=== PATIENT | male | born 1935 | race Caucasian/White ===

== ENCOUNTER 2017-04-27 02:34 | Emergency (ER) | payer OTHER ==
[~2017-04-27] VITALS: Ht 175.3 cm; Wt 74.8 kg
[~2017-04-27 02:34] MED LIST: ACYCLOVIR 400400 MG PO; ADULT LOW DOSE81 MG PO; B-12500 MCG PO; CARDIOTABS PO; CHOLESTYRAMINE R5 GM; CIPROFLOXACIN500 M1 PO; COREG PO; CRESTOR40 MG PO; DIFLORASONE DIA30 GM; DOXYCYCLINE 10100 MG PO; ERYTHROMYCIN E3.5 G1 OPHTHALMIC; FLAGYL500 MG PO; GABAPENTIN 100100 MG PO; GEMFIBROZIL 60600 MG PO; GLUCOPHAGE500 MG PO; HYCET 7.5 MG-3473 ML PO; IRON INFUSION; KLOR-CON 1010 MEQ PO; LEVAQUIN 500 M500 MG PO; NEXIUM40 MG PO; NORCO 5-325 TA1 EACH; NORCO 5-325 TA1 EACH PO; OMEPRAZOLE20 M2 PO; PANTOPRAZOLE SO40 M1; PREDNISONE 20 M20 MG PO; QUINU10 PD; REGLAN 10 MG TA10 MG PO; SLOW FE 160MG160 MG PO; SLOW IRON PO; TOBREX5 ML OPHTHALMIC; TRICOR145 MG PO; VENTOLIN HFA 1818 GM INH; VICODIN 5-5001 EACH PO; VITAMIN E400 UNIT PO; VYTORIN 10-801 EACH PO; ZANAFLEX2 M1 PO; ZOFRAN ODT4 MG PO; ZOFRAN4 MG PO; [UNRECOGNIZED DRUG - OTHER] PO
[2017-04-27 03:04] LABS: ABSOLUTE NEUTROPHILS 8.4 thou/uL (1.4-8.2); BASOPHILS 1.2 % (0.0-2.0); EOSINOPHILS 1.3 % (0.0-3.0); HEMATOCRIT 42.3 % (42.0-52.0); HEMOGLOBIN 14.5 gm/dL (14.0-18.0); LYMPHOCYTES 7.1 % (24.0-44.0); MCH 32.4 pg (26.0-34.0); MCHC 34.3 g/dL (28.0-37.0); MCV 94.3 fL (80.0-100.0); MONOCYTES 6.7 % (1.0-8.0); PLATELET COUNT 166 thou/uL (150-400); POLYS 83.7 % (36.0-66.0); RBC 4.49 mil/uL (4.50-6.00); RDW 13.5 % (10.5-14.5); WBC 10.1 thou/uL (4.0-11.0)
[2017-04-27 03:13] LABS: CALCIUM 9.2 mg/dL (8.5-10.1); CREATININE 1.1 mg/dL (0.7-1.3); POTASSIUM 3.9 mmol/L (3.5-5.1)
[2017-04-27 03:17] LABS: TOTAL BILIRUBIN 0.7 mg/dL (<0.1-1.0); TOTAL PROTEIN 7.4 g/dL (6.4-8.2)
[2017-04-27 03:18] LABS: MANUAL DIFF NO
[2017-04-27 04:03] LABS: URINE BILIRUBIN NEGATIVE (Negative); URINE BLOOD NEGATIVE (Negative); URINE COLOR YELLOW; URINE GLUCOSE-RANDOM* TRACE (Negative); URINE KETONES TRACE (Negative); URINE LEUKOCYTES-REFLEX NEGATIVE (Negative); URINE PROTEIN (DIPSTICK) TRACE (Negative); URINE SPECIFIC GRAVITY >= 1.030 (1.003-1.035); URINE UROBILINOGEN 0.2 E.U./dl (0.2-1.0)
[2017-04-27] MEDS ORDERED: ZOFRAN ODT4 MG PO (05:36)
[2017-04-27 05:50] VITALS: BP 130/50
== END 2017-04-27 05:41 ==
LOC: ER 02:34
PROVIDERS: Emergency Medicine
DX: K52.9 Noninfective gastroenteritis and colitis, unspecified (principal); I10 Essential (primary) hypertension; E11.9 Type 2 diabetes mellitus without complications; K21.9 Gastro-esophageal reflux disease without esophagitis; E78.5 Hyperlipidemia, unspecified; I25.10 Atherosclerotic heart disease of native coronary artery without angina pectoris; Z86.2 Personal history of diseases of the blood and blood-forming organs and certain disorders involving the immune mechanism; Z88.0 Allergy status to penicillin

== ENCOUNTER 2018-05-05 11:24 | Emergency (ER) | payer OTHER ==
[~2018-05-05] VITALS: Ht 177.8 cm; Wt 69.4 kg
[2018-05-05] MEDS ORDERED: FENOFIBRATE145 M1 PO (11:38)
[2018-05-05 12:28] LABS: APTT 25.8 Seconds (24.5-32.8); PROTIME 10.6 Seconds (9.3-11.4)
[2018-05-05] MEDS ORDERED: TRAMADOL 50 MG50 MG PO (13:09)
[2018-05-05 14:33] VITALS: BP 164/65
== END 2018-05-05 14:54 | disposition home or self-care (01) ==
LOC: ER 11:24
PROVIDERS: Emergency Medicine
DX: S89.91XA Unspecified injury of right lower leg, initial encounter (principal); M25.461 Effusion, right knee; I10 Essential (primary) hypertension; E11.9 Type 2 diabetes mellitus without complications; K21.9 Gastro-esophageal reflux disease without esophagitis; E78.5 Hyperlipidemia, unspecified; I25.10 Atherosclerotic heart disease of native coronary artery without angina pectoris; Z88.0 Allergy status to penicillin; W22.8XXA Striking against or struck by other objects, initial encounter; Y92.89 Other specified places as the place of occurrence of the external cause; Y93.89 Activity, other specified; Y99.8 Other external cause status

== ENCOUNTER 2018-10-19 12:59 | Emergency (ER) | payer OTHER ==
[~2018-10-19] VITALS: Ht 177.8 cm; Wt 68.0 kg
[~2018-10-19 12:59] MED LIST changes: +FENOFIBRATE145 M1 PO; +TRAMADOL 50 MG50 MG PO
[2018-10-19] MEDS ORDERED: CHOLESTYRAMINE P4 GM PO (13:52)
[2018-10-19] MEDS ORDERED: VITAMIN B-12500 MCG PO (13:52)
[2018-10-19 14:21] LABS: EOSINOPHILS 1.1 % (0.0-3.0); HEMATOCRIT 42.1 % (42.0-52.0); HEMOGLOBIN 14.4 gm/dL (14.0-18.0); LYMPHOCYTES 20.9 % (24.0-44.0); MCH 31.8 pg (26.0-34.0); MCHC 34.2 g/dL (28.0-37.0); MCV 93.2 fL (80.0-100.0); MONOCYTES 6.5 % (1.0-8.0); PLATELET COUNT 188 thou/uL (150-400); POLYS 70.5 % (36.0-66.0); RBC 4.52 mil/uL (4.50-6.00); RDW 13.1 % (10.5-14.5); WBC 7.1 thou/uL (4.0-11.0)
[2018-10-19 14:28] LABS: CALCIUM 9.3 mg/dL (8.5-10.1); POTASSIUM 3.3 mmol/L (3.5-5.1)
[2018-10-19 14:34] LABS: ALBUMIN 3.8 g/dL (3.4-5.0); TOTAL BILIRUBIN 0.7 mg/dL (<0.1-1.0); TOTAL PROTEIN 7.3 g/dL (6.4-8.2)
[2018-10-19 16:21] LABS: URINE BILIRUBIN NEGATIVE (Negative); URINE BLOOD NEGATIVE (Negative); URINE CLARITY CLEAR; URINE COLOR YELLOW; URINE GLUCOSE-RANDOM* NEGATIVE (Negative); URINE KETONES NEGATIVE (Negative); URINE LEUKOCYTES-REFLEX NEGATIVE (Negative); URINE NITRITE-REFLEX NEGATIVE (Negative); URINE PROTEIN (DIPSTICK) NEGATIVE (Negative); URINE UROBILINOGEN 0.2 E.U./dl (0.2-1.0)
[2018-10-19] MEDS ORDERED: BENTYL 20 MG TA20 M1 PO (16:25)
[2018-10-19 16:36] VITALS: BP 124/64
== END 2018-10-19 16:37 | disposition home or self-care (01) ==
LOC: ER 12:59
PROVIDERS: Physician Assistant
DX: R10.31 Right lower quadrant pain (principal); I10 Essential (primary) hypertension; E11.9 Type 2 diabetes mellitus without complications; K21.9 Gastro-esophageal reflux disease without esophagitis; E78.5 Hyperlipidemia, unspecified; I25.810 Atherosclerosis of coronary artery bypass graft(s) without angina pectoris; Z88.0 Allergy status to penicillin

== ENCOUNTER 2019-09-16 15:10 | Emergency (ER) | payer OTHER ==
[~2019-09-16] VITALS: Ht 177.8 cm; Wt 65.3 kg
[~2019-09-16 15:10] MED LIST changes: +BENTYL 20 MG TA20 M1 PO; +CHOLESTYRAMINE P4 GM PO; +VITAMIN B-12500 MCG PO
[2019-09-16 15:11] VITALS: BP 97/47
[2019-09-16] MEDS ORDERED: BENADRYL ITCH28.3 G1 TOP (15:41)
[2019-09-16] MEDS ORDERED: PREDNISONE 20 M20 M1 PO (15:41)
[2019-09-16] MEDS ORDERED: FAMOTIDINE 20 M20 MG PO (15:41)
== END 2019-09-16 16:01 | disposition home or self-care (01) ==
LOC: ER 15:10
DX: L50.9 Urticaria, unspecified (principal); T38.3X5A Adverse effect of insulin and oral hypoglycemic [antidiabetic] drugs, initial encounter; I10 Essential (primary) hypertension; I25.10 Atherosclerotic heart disease of native coronary artery without angina pectoris; E11.9 Type 2 diabetes mellitus without complications; E78.5 Hyperlipidemia, unspecified; K21.9 Gastro-esophageal reflux disease without esophagitis; Z86.2 Personal history of diseases of the blood and blood-forming organs and certain disorders involving the immune mechanism; Z88.0 Allergy status to penicillin; Y92.89 Other specified places as the place of occurrence of the external cause

== ENCOUNTER 2019-10-28 12:57 | Emergency (ER) | payer OTHER ==
[~2019-10-28] VITALS: Ht 177.8 cm; Wt 68.0 kg
[~2019-10-28 12:57] MED LIST changes: +BENADRYL ITCH28.3 G1 TOP; +FAMOTIDINE 20 M20 MG PO; +PREDNISONE 20 M20 M1 PO
[2019-10-28] MEDS ORDERED: LISINOPRIL2.5 MG PO (13:02)
[2019-10-28] MEDS ORDERED: PROTONIX40 M2 PO (13:02)
[2019-10-28] MEDS ORDERED: CARVEDILOL25 MG PO (13:02)
[2019-10-28] MEDS ORDERED: ROSUVASTATIN CA20 MG PO (13:02)
[2019-10-28] MEDS ORDERED: JARDIANCE25 MG PO (13:03)
[2019-10-28] MEDS ORDERED: TRADJENTA5 MG (13:03)
[2019-10-28] MEDS ORDERED: NORCO 5-325 TA1 EAC1 PO (13:30)
[2019-10-28 13:44] VITALS: BP 135/57
== END 2019-10-28 13:35 | disposition home or self-care (01) ==
LOC: ER 12:57
DX: B02.29 Other postherpetic nervous system involvement (principal); E78.5 Hyperlipidemia, unspecified; K21.9 Gastro-esophageal reflux disease without esophagitis; I11.0 Hypertensive heart disease with heart failure; I50.9 Heart failure, unspecified; I25.10 Atherosclerotic heart disease of native coronary artery without angina pectoris; Z88.0 Allergy status to penicillin

== ENCOUNTER 2020-03-18 00:14 | Emergency (ER) | payer OTHER ==
[~2020-03-18] VITALS: Ht 170.2 cm; Wt 72.1 kg
[~2020-03-18 00:14] MED LIST changes: +CARVEDILOL25 MG PO; +JARDIANCE25 MG PO; +LISINOPRIL2.5 MG PO; +NORCO 5-325 TA1 EAC1 PO; +PROTONIX40 M2 PO; +ROSUVASTATIN CA20 MG PO; +TRADJENTA5 MG
[2020-03-18] MEDS ORDERED: NORFLEX100 MG PO (01:48)
[2020-03-18] MEDS ORDERED: NORCO 5-325 TA1 EAC1 PO (01:48)
[2020-03-18] MEDS ORDERED: SENNA-DOCUSATE1 EAC1 PO (01:48)
[2020-03-18] MEDS ORDERED: ACTOS 45 MG45 M2 PO (01:54)
[2020-03-18] MEDS ORDERED: NEURONTIN 300M300 M2 PO (01:57)
[2020-03-18] MEDS ORDERED: CARDIOTAB PO (01:58)
[2020-03-18] MEDS ORDERED: [UNRECOGNIZED DRUG - OTHER] PO (01:58)
[2020-03-18] MEDS ORDERED: VITAMIN B12 PO (01:59)
[2020-03-18 02:28] VITALS: BP 113/69
--- NOTE | 2020-03-18 14:29 | EKG ---
[facility] [place] [address] ELECTROCARDIOGRAM REPORT Name: CUONG ISIDRO Room #: DEP [facility]#: [id number] Admission: 03/18/20 Attend Phys: Discharge: 03/18/20 Date of : 31 Report #: [id number] THIS REPORT FOR: cc: Oh Landon David J. 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
== END 2020-03-18 02:20 | disposition home or self-care (01) ==
LOC: ER 00:14
DX: M62.838 Other muscle spasm (principal); M25.512 Pain in left shoulder; I10 Essential (primary) hypertension; E11.9 Type 2 diabetes mellitus without complications; K21.9 Gastro-esophageal reflux disease without esophagitis; E78.5 Hyperlipidemia, unspecified; I25.10 Atherosclerotic heart disease of native coronary artery without angina pectoris; Z87.19 Personal history of other diseases of the digestive system; Z79.899 Other long term (current) drug therapy; Z88.0 Allergy status to penicillin

== ENCOUNTER → 2020-06-17 | Outpatient (CLI) | payer OTHER ==
[~2020-06-17] MED LIST changes: +ACTOS 45 MG45 M2 PO; +CARDIOTAB PO; +NEURONTIN 300M300 M2 PO; +NORFLEX100 MG PO; +SENNA-DOCUSATE1 EAC1 PO; +VITAMIN B12 PO; +[UNRECOGNIZED DRUG - OTHER] PO
== END ==
LOC: SJCVC 11:06
PROVIDERS: ATTEND Internal Medicine Cardiovascular Disease
DX: I25.10 Atherosclerotic heart disease of native coronary artery without angina pectoris (principal); R94.31 Abnormal electrocardiogram [ECG] [EKG]; I10 Essential (primary) hypertension; E78.00 Pure hypercholesterolemia, unspecified; E11.9 Type 2 diabetes mellitus without complications; Z95.1 Presence of aortocoronary bypass graft; Z79.899 Other long term (current) drug therapy

== ENCOUNTER → 2020-07-02 | Outpatient (CLI) | payer OTHER | LOC: SJCVCIMAG 07:47 | PROVIDERS: ATTEND Internal Medicine Cardiovascular Disease | DX: I25.10 Atherosclerotic heart disease of native coronary artery without angina pectoris (principal); I45.10 Unspecified right bundle-branch block; I49.3 Ventricular premature depolarization; E78.5 Hyperlipidemia, unspecified; I10 Essential (primary) hypertension; E11.9 Type 2 diabetes mellitus without complications; Z95.1 Presence of aortocoronary bypass graft; Z79.899 Other long term (current) drug therapy ==

== ENCOUNTER 2020-08-08 16:00 | Emergency (ER) | payer OTHER ==
[~2020-08-08] VITALS: Ht 172.7 cm; Wt 68.0 kg
[2020-08-08] MEDS ORDERED: ASA81BEC PO (19:04)
[2020-08-08] MEDS ORDERED: NITROSTAT0.4 M1 SUBLING (19:04)
[2020-08-08] MEDS ORDERED: NORCO 5-325 TA1 EAC2 PO (19:08)
[2020-08-08] MEDS ORDERED: VOLTAREN GEL 1100 G1 TOP (19:08)
[2020-08-08] MEDS ORDERED: TIZANIDINE HCL2 M1 PO (19:08)
[2020-08-08 19:11] VITALS: BP 149/51
== END 2020-08-08 19:27 | disposition home or self-care (01) ==
LOC: ER 16:00
DX: S16.1XXA Strain of muscle, fascia and tendon at neck level, initial encounter (principal); I10 Essential (primary) hypertension; E11.9 Type 2 diabetes mellitus without complications; E78.5 Hyperlipidemia, unspecified; K21.9 Gastro-esophageal reflux disease without esophagitis; I25.10 Atherosclerotic heart disease of native coronary artery without angina pectoris; Z86.2 Personal history of diseases of the blood and blood-forming organs and certain disorders involving the immune mechanism; Z79.899 Other long term (current) drug therapy; Z88.0 Allergy status to penicillin; X50.1XXA Overexertion from prolonged static or awkward postures, initial encounter; Y93.89 Activity, other specified; Y92.89 Other specified places as the place of occurrence of the external cause; Y99.8 Other external cause status

== ENCOUNTER → 2020-10-09 | Outpatient (CLI) | payer OTHER ==
[~2020-10-09] MED LIST changes: +ASA81BEC PO; +NITROSTAT0.4 M1 SUBLING; +NORCO 5-325 TA1 EAC2 PO; +TIZANIDINE HCL2 M1 PO; +VOLTAREN GEL 1100 G1 TOP
== END ==
LOC: SJCVC 11:01
PROVIDERS: ATTEND Internal Medicine Cardiovascular Disease
DX: R94.31 Abnormal electrocardiogram [ECG] [EKG] (principal); E11.9 Type 2 diabetes mellitus without complications; I65.23 Occlusion and stenosis of bilateral carotid arteries; E78.00 Pure hypercholesterolemia, unspecified; I25.810 Atherosclerosis of coronary artery bypass graft(s) without angina pectoris; I10 Essential (primary) hypertension; Z95.1 Presence of aortocoronary bypass graft; Z79.82 Long term (current) use of aspirin; Z79.899 Other long term (current) drug therapy; Z88.8 Allergy status to other drugs, medicaments and biological substances; Z88.0 Allergy status to penicillin

== ENCOUNTER 2020-11-08 14:21 | Emergency (ER) | payer OTHER ==
[~2020-11-08] VITALS: Ht 175.3 cm; Wt 64.9 kg
[2020-11-08] MEDS ORDERED: CARVEDILOL (15:33)
[2020-11-08] MEDS ORDERED: ZESTRIL5 MG PO (15:34)
[2020-11-08] MEDS ORDERED: PLAVIX 75 MG TA75 MG PO (15:34)
[2020-11-08] MEDS ORDERED: ROSUVASTATIN CA20 MG PO (15:36)
[2020-11-08] MEDS ORDERED: PROTONIX40 M2 PO (15:36)
[2020-11-08] MEDS ORDERED: TRADJENTA5 MG (15:37)
[2020-11-08 15:46] LABS: ABSOLUTE NEUTROPHILS 2.1 thou/uL (1.4-8.2); BASOPHILS 0.8 % (0.0-2.0); EOSINOPHILS 3.2 % (0.0-3.0); HEMATOCRIT 37.2 % (42.0-52.0); LYMPHOCYTES 26.2 % (24.0-44.0); MCH 32.2 pg (26.0-34.0); MCHC 32.3 g/dL (28.0-37.0); MCV 99.8 fL (80.0-100.0); MONOCYTES 2.6 % (1.0-8.0); PLATELET COUNT 186 thou/uL (150-400); POLYS 67.2 % (36.0-66.0); RBC 3.72 mil/uL (4.50-6.00); RDW 15.2 % (10.5-14.5); WBC 3.2 thou/uL (4.0-11.0)
[2020-11-08 15:48] LABS: ANION GAP 13 mmol/L (7-16); BUN 30 mg/dL (7-18); CALCIUM 8.9 mg/dL (8.5-10.1); CHLORIDE 104 mmol/L (98-107); CO2 19 mmol/L (21-32); CREATININE 1.4 mg/dL (0.7-1.3); GLUCOSE 315 mg/dL (74-106); POTASSIUM 4.4 mmol/L (3.5-5.1); SODIUM 136 mmol/L (136-145)
[2020-11-08 15:58] LABS: ALBUMIN 3.3 g/dL (3.4-5.0); DIRECT BILIRUBIN < 0.1 mg/dL (<0.1-0.2); SGOT 29 U/L (15-37); SGPT 26 U/L (30-65); TOTAL BILIRUBIN 0.5 mg/dL (0.2-1.0); TOTAL PROTEIN 6.5 g/dL (6.4-8.2); TROPONIN-I <0.06 ng/mL (<0.06)
--- NOTE | 2020-11-08 16:21 | EKG ---
[place] [address] [facility] [place] [address] ELECTROCARDIOGRAM REPORT Name: ESTELLEIMMANUELCUONG E [id number] Admission: 11/08/20 Attend Phys: Discharge: Date of : 31 Report #: [id number] 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: [place] : 1935 Requested By: Marlyn Gaona Order Number: [id number] MD: Anant Mejia Measurements Intervals [place] Rate: 72 P: 23 MO: 187 QRS: -21 QRSD: 107 T: 65 QT: 403 QTc: 442 Interpretive Statements Sinus rhythm Borderline left axis deviation Q's lead II, AVF RSR' in V1 or V2, probably normal variant Compared to ECG 03/18/2020 01:10:27 RSR' in V1 or V2 now present Electronically Signed On 11-08-2020 16:21:03 [employer]BI[employer] UI[employer] DESIGN[employer] by Anant Mejia [email or web address] <ELECTRONICALLY SIGNED> By: Anant Mejia MD, [facility] [id number] 50 50 Anant Mejia MD, FAC /EPI
[2020-11-08 17:35] LABS: URINE BILIRUBIN NEGATIVE (Negative); URINE BLOOD TRACE (Negative); URINE CLARITY CLEAR; URINE COLOR YELLOW; URINE GLUCOSE-RANDOM* 3+ (Negative); URINE KETONES NEGATIVE (Negative); URINE LEUKOCYTES-REFLEX NEGATIVE (Negative); URINE NITRITE-REFLEX NEGATIVE (Negative); URINE PROTEIN (DIPSTICK) NEGATIVE (Negative); URINE UROBILINOGEN 0.2 E.U./dl (0.2-1.0)
[2020-11-08 18:32] VITALS: BP 119/46
== END 2020-11-08 18:32 | disposition home or self-care (01) ==
LOC: ER 14:21
PROVIDERS: Emergency Medicine
DX: R53.1 Weakness (principal); R19.7 Diarrhea, unspecified; I10 Essential (primary) hypertension; E11.9 Type 2 diabetes mellitus without complications; K21.9 Gastro-esophageal reflux disease without esophagitis; E78.5 Hyperlipidemia, unspecified; I25.10 Atherosclerotic heart disease of native coronary artery without angina pectoris; Z88.0 Allergy status to penicillin; Z79.899 Other long term (current) drug therapy; Z79.82 Long term (current) use of aspirin

== ENCOUNTER → 2021-01-23 | Outpatient (CLI) | payer OTHER ==
[~2021-01-23] MED LIST changes: +CARVEDILOL; +PLAVIX 75 MG TA75 MG PO; +ZESTRIL5 MG PO
== END ==
LOC: SJCVC 15:16 → SJCVCIMAG 15:16
PROVIDERS: ATTEND Internal Medicine Cardiovascular Disease
DX: I65.23 Occlusion and stenosis of bilateral carotid arteries (principal); R94.31 Abnormal electrocardiogram [ECG] [EKG]; I10 Essential (primary) hypertension; E78.5 Hyperlipidemia, unspecified; I25.810 Atherosclerosis of coronary artery bypass graft(s) without angina pectoris; E78.00 Pure hypercholesterolemia, unspecified; E11.9 Type 2 diabetes mellitus without complications; Z95.1 Presence of aortocoronary bypass graft; Z88.0 Allergy status to penicillin; Z88.8 Allergy status to other drugs, medicaments and biological substances; Z79.82 Long term (current) use of aspirin; Z79.899 Other long term (current) drug therapy

== ENCOUNTER → 2021-07-23 | Outpatient (CLI) | payer OTHER | LOC: SJCVC 11:06 | PROVIDERS: ATTEND Internal Medicine Cardiovascular Disease | DX: R94.31 Abnormal electrocardiogram [ECG] [EKG] (principal); I25.810 Atherosclerosis of coronary artery bypass graft(s) without angina pectoris; I10 Essential (primary) hypertension; E78.00 Pure hypercholesterolemia, unspecified; E11.9 Type 2 diabetes mellitus without complications; I65.23 Occlusion and stenosis of bilateral carotid arteries; Z95.1 Presence of aortocoronary bypass graft; R01.1 Cardiac murmur, unspecified; K57.92 Diverticulitis of intestine, part unspecified, without perforation or abscess without bleeding; I21.9 Acute myocardial infarction, unspecified; Z72.89 Other problems related to lifestyle; Z79.899 Other long term (current) drug therapy; Z88.0 Allergy status to penicillin; Z88.8 Allergy status to other drugs, medicaments and biological substances ==